=== PATIENT | male | born 1985 | race Caucasian/White ===

== ENCOUNTER → 2016-07-09 | Outpatient (CLI) | payer BC | LOC: LAB 15:00 | DX: A09 Infectious gastroenteritis and colitis, unspecified (principal) ==

== ENCOUNTER → 2017-07-01 | Outpatient (CLI) | payer BC ==
[2017-07-01 12:19] LABS: EOS # 0.2 (0.04-0.40); EOS % 2.1 % (0.0-4.0); HEMOGLOBIN 17.2 g/dL (13.5-18.0); LYMPH# 2.4 (1.50-4.00); MEAN CELL VOLUME 85 fl (78-100); MEAN CORPUSCULAR HEMOGLOBIN 31 pg (27-31); MEAN CORPUSCULAR HGB CONC 36 g/dL (33-37); MEAN PLATELET VOLUME 9.7 fl (7.4-10.4); MONO # 0.7 (0.20-0.80); NEU # 6.3 (1.40-6.50); PLATELET COUNT 326 K/mm3 (130-400); RED BLOOD COUNT 5.64 M/mm3 (4.20-5.60); WHITE BLOOD COUNT 9.6 K/mm3 (4.8-10.8)
[2017-07-01 13:39] LABS: ERYTHROCYTE SEDIMENTATION RATE 5 mm/hr (0-15)
== END ==
LOC: LAB 11:55
PROVIDERS: Nurse Practitioner Family
DX: M20.62 Acquired deformities of toe(s), unspecified, left foot (principal); M19.079 Primary osteoarthritis, unspecified ankle and foot

== ENCOUNTER → 2018-06-02 | Outpatient (CLI) | payer BC ==
[2018-06-02 11:54] LABS: EOS # 0.3 (0.04-0.40); EOS % 4.9 % (0.0-4.0); HEMATOCRIT 44.9 % (42.0-52.0); HEMOGLOBIN 16.4 g/dL (13.5-18.0); LYMPH# 2.1 (1.50-4.00); MEAN CELL VOLUME 85 fl (78-100); MEAN CORPUSCULAR HEMOGLOBIN 31 pg (27-31); MEAN CORPUSCULAR HGB CONC 37 g/dL (33-37); MEAN PLATELET VOLUME 9.7 fl (7.4-10.4); MONO # 0.5 (0.20-0.80); PLATELET COUNT 323 K/mm3 (130-400); RED BLOOD COUNT 5.27 M/mm3 (4.20-5.60); RED CELL DISTRIBUTION WIDTH 11.8 % (11.5-14.5)
[2018-06-02 12:33] LABS: ALBUMIN 5.1 g/dL (3.5-5.0); CALCIUM 9.5 mg/dL (8.4-10.2); POTASSIUM 3.8 mmol/L (3.6-5.0); TOTAL BILIRUBIN 0.8 mg/dL (0.2-1.3); TOTAL PROTEIN 8.2 g/dL (6.3-8.2)
== END ==
LOC: LAB 11:33
PROVIDERS: Physician Assistant
DX: I10 Essential (primary) hypertension (principal); M54.16 Radiculopathy, lumbar region

== ENCOUNTER → 2019-04-15 | Outpatient (CLI) | payer BC | LOC: LAB 14:09 | DX: S99.922A Unspecified injury of left foot, initial encounter (principal); M89.30 Hypertrophy of bone, unspecified site; I10 Essential (primary) hypertension; M54.17 Radiculopathy, lumbosacral region; M20.62 Acquired deformities of toe(s), unspecified, left foot ==

== ENCOUNTER → 2019-04-27 | Outpatient (CLI) | payer BC ==
[2019-04-27 15:33] LABS: HEMATOCRIT 44.9 % (42.0-52.0); HEMOGLOBIN 15.5 g/dL (13.5-18.0); MEAN PLATELET VOLUME 9.4 fl (7.4-10.4); RED BLOOD COUNT 5.12 M/mm3 (4.20-5.60); RED CELL DISTRIBUTION WIDTH 11.7 % (11.5-14.5); WHITE BLOOD COUNT 6.6 K/mm3 (4.8-10.8)
[2019-04-27 15:43] LABS: POTASSIUM 3.8 mmol/L (3.5-5.1)
[2019-04-27 15:44] LABS: CALCIUM 9.9 mg/dL (8.3-10.5)
== END ==
LOC: LAB 15:22
PROVIDERS: Podiatrist
DX: M19.072 Primary osteoarthritis, left ankle and foot (principal)

== ENCOUNTER → 2020-01-12 | Outpatient (CLI) | payer BC | LOC: RAD 11:33 | DX: T75.4XXA Electrocution, initial encounter (principal); M25.511 Pain in right shoulder ==

== ENCOUNTER → 2020-01-18 | Outpatient (CLI) | payer BC | LOC: RAD 09:26 | DX: T75.4XXA Electrocution, initial encounter (principal); I10 Essential (primary) hypertension; M75.81 Other shoulder lesions, right shoulder ==

== ENCOUNTER → 2020-04-25 | Outpatient (CLI) | payer BC ==
[2020-04-25 06:56] LABS: EOS # 0.1 (0.04-0.40); EOS % 1.6 % (0.0-4.0); HEMOGLOBIN 16.2 g/dL (13.5-18.0); LYMPH# 2.1 (1.50-4.00); MEAN CELL VOLUME 86 fl (78-100); MEAN CORPUSCULAR HEMOGLOBIN 31 pg (27-31); MEAN CORPUSCULAR HGB CONC 36 g/dL (33-37); MEAN PLATELET VOLUME 9.2 fl (7.4-10.4); MONO # 0.4 (0.20-0.80); PLATELET COUNT 384 K/mm3 (130-400); RED BLOOD COUNT 5.24 M/mm3 (4.20-5.60); RED CELL DISTRIBUTION WIDTH 11.8 % (11.5-14.5); WHITE BLOOD COUNT 5.7 K/mm3 (4.8-10.8)
[2020-04-25 07:00] LABS: ALBUMIN 4.5 g/dL (3.5-5.0); POTASSIUM 3.9 mmol/L (3.5-5.1)
[2020-04-25 07:01] LABS: CALCIUM 9.4 mg/dL (8.3-10.5)
[2020-04-25 07:02] LABS: TOTAL PROTEIN 7.9 g/dL (6.4-8.3)
[2020-04-25 07:04] LABS: TOTAL BILIRUBIN 0.5 mg/dL (0.2-1.2)
== END ==
LOC: LAB 06:33
PROVIDERS: Physician Assistant
DX: I10 Essential (primary) hypertension (principal); G89.29 Other chronic pain; M54.17 Radiculopathy, lumbosacral region; M10.9 Gout, unspecified

== ENCOUNTER → 2020-12-05 | Outpatient (CLI) | payer BC | LOC: LAB 09:43 | DX: Z20.822 Contact with and (suspected) exposure to COVID-19 (principal) ==

== ENCOUNTER → 2021-05-07 | Outpatient (CLI) | payer BC | LOC: LAB 10:07 → RAD 10:07 | DX: R31.9 Hematuria, unspecified (principal) | CPT/HCPCS: Q9967 ==

== ENCOUNTER → 2021-09-18 | Outpatient (CLI) | payer BC ==
[2021-09-18 12:10] LABS: BASO # 0.08 K/mm3 (0.02-0.10); EOS # 0.33 K/mm3 (0.04-0.40); EOS % 4.8 % (0.0-4.0); HEMATOCRIT 50.5 % (42.0-52.0); HEMOGLOBIN 18.1 g/dL (13.5-18.0); LYMPH# 2.35 K/mm3 (1.50-4.00); MEAN CELL VOLUME 85 fl (78-100); MEAN CORPUSCULAR HEMOGLOBIN 31 pg (27-31); MEAN CORPUSCULAR HGB CONC 36 g/dL (33-37); MEAN PLATELET VOLUME 9.2 fl (7.4-10.4); MONO # 0.58 K/mm3 (0.20-0.80); NEU # 3.51 K/mm3 (1.40-6.50); PLATELET COUNT 382 K/mm3 (130-400); RED BLOOD COUNT 5.93 M/mm3 (4.20-5.60); RED CELL DISTRIBUTION WIDTH 11.7 % (11.5-14.5); WHITE BLOOD COUNT 6.9 K/mm3 (4.8-10.8)
[2021-09-18 12:33] LABS: ALBUMIN 4.8 g/dL (3.5-5.0); POTASSIUM 4.1 mmol/L (3.5-5.1)
[2021-09-18 12:36] LABS: TOTAL PROTEIN 8.2 g/dL (6.4-8.3)
[2021-09-18 12:37] LABS: TOTAL BILIRUBIN 0.8 mg/dL (0.2-1.2)
== END ==
LOC: LAB 11:43
PROVIDERS: Physician Assistant
DX: Z23 Encounter for immunization (principal); Z00.00 Encounter for general adult medical examination without abnormal findings; Z13.220 Encounter for screening for lipoid disorders; R06.83 Snoring; Z72.820 Sleep deprivation

== ENCOUNTER → 2021-10-23 | Outpatient (CLI) | payer BC ==
[2021-10-23 07:52] LABS: ALBUMIN 4.3 g/dL (3.5-5.0)
[2021-10-23 07:53] LABS: CALCIUM 9.2 mg/dL (8.3-10.5)
[2021-10-23 07:54] LABS: TOTAL PROTEIN 7.1 g/dL (6.4-8.3)
[2021-10-23 07:56] LABS: TOTAL BILIRUBIN 0.4 mg/dL (0.2-1.2)
== END ==
LOC: LAB 07:07
PROVIDERS: Physician Assistant
DX: I10 Essential (primary) hypertension (principal); G89.29 Other chronic pain; E78.5 Hyperlipidemia, unspecified

== ENCOUNTER → 2022-03-14 | Outpatient (CLI) | payer BC ==
[2022-03-14 11:56] LABS: BASO # 0.05 K/mm3 (0.02-0.10); EOS # 0.32 K/mm3 (0.04-0.40); EOS % 4.6 % (0.0-4.0); HEMATOCRIT 45.9 % (42.0-52.0); HEMOGLOBIN 16.3 g/dL (13.5-18.0); LYMPH# 2.37 K/mm3 (1.50-4.00); MEAN CELL VOLUME 88 fl (78-100); MEAN CORPUSCULAR HEMOGLOBIN 31 pg (27-31); MEAN CORPUSCULAR HGB CONC 36 g/dL (33-37); MEAN PLATELET VOLUME 9.1 fl (7.4-10.4); MONO # 0.58 K/mm3 (0.20-0.80); NEU # 3.68 K/mm3 (1.40-6.50); PLATELET COUNT 361 K/mm3 (130-400); RED BLOOD COUNT 5.23 M/mm3 (4.20-5.60); RED CELL DISTRIBUTION WIDTH 11.8 % (11.5-14.5)
[2022-03-14 11:59] LABS: ALBUMIN 4.5 g/dL (3.5-5.0); POTASSIUM 3.9 mmol/L (3.5-5.1)
[2022-03-14 12:00] LABS: CALCIUM 9.6 mg/dL (8.3-10.5)
[2022-03-14 12:02] LABS: TOTAL PROTEIN 7.6 g/dL (6.4-8.3)
[2022-03-14 12:03] LABS: TOTAL BILIRUBIN 0.5 mg/dL (0.2-1.2)
[2022-03-14 12:08] LABS: MAGNESIUM 2.07 mg/dL (1.60-2.60)
== END ==
LOC: LAB 11:41
PROVIDERS: Physician Assistant
DX: I10 Essential (primary) hypertension (principal); G89.29 Other chronic pain; E78.5 Hyperlipidemia, unspecified; R51.9 Headache, unspecified; G43.909 Migraine, unspecified, not intractable, without status migrainosus

== ENCOUNTER → 2024-07-20 | Outpatient (CLI) | payer BC | LOC: RAD 08:14 | DX: M25.812 Other specified joint disorders, left shoulder (principal); S43.022A Posterior subluxation of left humerus, initial encounter; M19.012 Primary osteoarthritis, left shoulder ==